=== PATIENT | male | born 1970 | race Caucasian/White ===

== ENCOUNTER 2019-03-08 12:01 | Emergency (ER) | payer OTHER ==
[~2019-03-08] VITALS: Ht 182.9 cm; Wt 88.9 kg
[2019-03-08] MEDS ORDERED: OSEL75CA PO (14:41)
[2019-03-08] MEDS ORDERED: TUSSI PRES-B L480 ML PO (14:41)
== END 2019-03-08 14:47 | disposition home or self-care (01) ==
LOC: ER 12:01
DX: B34.9 Viral infection, unspecified (principal)

== ENCOUNTER 2024-01-09 09:08 | Emergency (ER) | payer OTHER ==
[~2024-01-09] VITALS: Ht 182.9 cm; Wt 94.3 kg
[~2024-01-09 09:08] MED LIST: OSEL75CA PO; TUSSI PRES-B L480 ML PO
[2024-01-09] MEDS ORDERED: LEVALBUTEROL HCL 1.25 MG/3 ML SOLUTION IH STA (10:50)
[2024-01-09] MEDS ORDERED: BUDESONIDE 0.5 MG/2 ML AMPUL.NEB IH STA (10:50)
[2024-01-09 11:16] LABS: HEMATOCRIT 47.1 % (39.0-48.0); HEMOGLOBIN 16.3 g/dL (13-16.00); MEAN CELL VOLUME 90.1 fL (80.0-100.00); MEAN CORPUSCULAR HEMOGLOBIN 31.2 pg (27.00-32.0); MEAN CORPUSCULAR HGB CONC 34.7 g/dl (32.0-36.0); PLATELET COUNT 189 K/uL (150-450); RED BLOOD COUNT 5.22 M/uL (4.00-6.00); RED CELL DISTRIBUTION WIDTH 13.6 % (11.5-14.5)
[2024-01-09 11:54] LABS: CALCIUM 9.2 mg/dL (8.5-10.1); CREATININE SERUM 1.19 mg/dL (0.70-1.30); GFR 64.2; POTASSIUM 4.27 mEq/L (3.5-5.1)
== END 2024-01-09 14:18 | disposition home or self-care (01) ==
LOC: ER 09:10
PROVIDERS: General Practice
DX: J40 Bronchitis, not specified as acute or chronic (principal); Z20.822 Contact with and (suspected) exposure to COVID-19